=== PATIENT | female | born 1985 | race Caucasian/White ===

== ENCOUNTER 2017-03-05 03:23 | Emergency (ER) | payer OTHER ==
[2017-03-05 06:08] VITALS: BP 132/82
== END 2017-03-05 06:08 | disposition home or self-care (01) ==
LOC: ED 03:23
DX: J40 Bronchitis, not specified as acute or chronic (principal); H92.02 Otalgia, left ear; Z88.6 Allergy status to analgesic agent
CPT/HCPCS: 87804; J1885; J7613

== ENCOUNTER 2017-03-08 22:39 | Emergency (ER) | payer OTHER ==
[~2017-03-08] VITALS: Ht 165.1 cm; Wt 122.6 kg
[2017-03-08 23:04] VITALS: BP 137/100; Ht 165.1 cm; Wt 122.6 kg
== END 2017-03-09 02:48 | disposition left against medical advice (07) ==
LOC: ED 22:39
DX: Z53.21 Procedure and treatment not carried out due to patient leaving prior to being seen by health care provider (principal)